=== PATIENT | female | born 1940 | race Caucasian/White ===

== ENCOUNTER 2019-12-29 05:56 | Day surgery (SDC) | payer MEDICARE, SELFPAY ==
[2019-12-29] VITALS (7 sets, daily range): BP systolic 126–151; BP diastolic 57–66; PULSE 44–53; RESP 16; TEMP 36.3–36.7; O2SAT 93–100; BMI 36.6
[2019-12-29] MEDS: Lactated Ringers 1,000 ML 100 ML IV (06:33)
--- NOTE | 2019-12-29 07:30 | BLA_PTH ---
PATIENT: Mabel KINNEY LOC: [facility] [place] U#:[id number] AGE/SX: 79/F ROOM: RE12/29/[address]: Dr. Elinor Soares MD : 1940 BED: DIS: 12/29/2019 SPEC #: [id number] RECD: 12/29/19 11:18 STATUS: POLLO REBal #: [id number] NELSY: 12/29/19 07:[address]: Elinor Soares DEPT: SURGICAL PATHOLOGY RECD BY: Lino Jones ENTERED: 12/29/19 13:04 SP TYPE: BLADDER BX OTHR DR: Dr. Taj Allan MD Tissues: A - Urinary bladder, NOS B - Urinary bladder, NOS Procedures: Surgery Specimen Level IV HEADER OPERATION: Cysto, urethral dilatation, bladder biopsy PRE-OP DIAGNOSIS: Stricture of urethra TISSUE SUBMITTED: A - Bladder biopsy, left lateral, B - Trigone consistent with leukoplakia MICROSCOPIC DIAGNOSIS A. Left lateral urinary bladder, biopsy: Chronic follicular cystitis. B. Urinary bladder trigone, biopsy: Chronic follicular cystitis. Focal acute cystitis. AM:debo 12/30/19 MICROSCOPIC DESCRIPTION Slides are reviewed. GROSS DESCRIPTION A - Received in fixative is one container labeled with the patient's name and designated bladder biopsy left lateral. The specimen consists of three irregular fragments of light hooks soft tissue that in aggregate measure 0.4 x 0.4 x 0.1 cm. The specimen is totally submitted in one cassette. B - Received in fixative is one container labeled with the patient's name and designated trigone consistent with leukoplakia. The specimen consists of two irregular fragments of hooks soft tissue that in aggregate measure 0.6 x 0.2 x 0.1 cm. The specimen is totally submitted in one cassette. / SJ:debo 12/29/19 TC:2 CPT: 11964 x2
--- NOTE | 2019-12-29 07:30 | PCM.DC.URO ---
Discharge Diet: No Restrictions Discharge Activity: May not drive while taking narcotic pain medications. May resume sexual activity in: 1 week Call your doctor if you observe: Fever of 101 or Higher, Inability to urinate, Inability to have a bowel movement, Calf discomfort, Uncontrolled pain Allergies/Adverse Reactions: Allergies aspirin Allergy (Verified 12/29/19 06:18) Swelling Medications to take at Discharge Amitriptyline HCl [Elavil] 25 mg PO QHS PRN 12/22/19 Estradiol [Estrace Vaginal Cream] 1 dose VAGINAL SUTH 12/22/19 Famotidine [Pepcid] 40 mg PO QHS 12/22/19 Fexofenadine HCl [Geraldine Allergy] 180 mg PO DAILY 12/22/19 Hydrochlorothiazide [Hctz] 25 mg PO DAILY 12/22/19 L. Acidophilus/Pectin, [place] [Acidophilus Capsule] 1 ea PO DAILY 12/22/19 Losartan Potassium [Cozaar] 25 mg PO DAILY 12/22/19 Tennyson-3 Fatty Acids [Tennyson-3] 200 mg PO BID 12/22/19 Rizatriptan Benzoate [Rizatriptan] 10 mg PO PRN PRN 12/22/19 Simvastatin [Zocor] 20 mg PO QHS 12/22/19 Ubidecarenone [Co Q-10] 10 mg PO DAILY 12/22/19 Primary Care Physician: Taj Allan MD [Primary Care Provider] - Test Results: Test results from this visit will be discussed in further detail at your follow-up appointment, if applicable. Please Follow Up With: Elinor Soares MD When: call for appt to be seen in 1-2 weeks Proposed Discharge Date: 12/29/19
--- NOTE | 2019-12-29 07:32 | OP.PCM_ITS ---
Problem List (1) Stricture of female urethra Status: Acute Report of Operation Date of Procedure: 12/29/19 Pre-Operative Diagnosis: urethral stricture, urgency and frequency of urination Post-Operative Diagnosis: same Surgery/Procedure Performed:: urethral dilation, cystoscopy Type of Anesthesia:: General Special Medications: Ancef Description of Procedure: The patient is a 79-year-old female who reported to the office with issues regarding urgency, frequency and nocturia. On evaluation she was found to have urethral stricture and I was unable to pass the scope in the office. Her sister has a history of bladder cancer. Risks, benefits and alternatives were discussed and informed consent was obtained to proceed with cystoscopy, urethral dilation and possible bladder biopsy under anesthesia. The patient was taken to the operating room and placed on the operating room table. Anesthesia monitored the head, neck, airway, IV access and vital signs throughout the case. Once anesthesia was appropriately administered, the patient was placed into dorsal lithotomy position and was prepped and draped in usual sterile fashion. The urethra was dilated from 12 Beninese to 30 Beninese using sounds. The urethra was then intubated with a 70 degree lens 21 Beninese cystoscope. The bladder mucosa in its entirety was observed. There is an area approximately 5 mm in size consistent with leukoplakia on the area of the trigone, closer to the left side, approximately 1.5 cm medial to the left ureteral orifice. There is a second area slightly raised, and hemorrhagic in appearance also approximately 5 mm in size located on the left lateral bladder wall lateral to the left ureteral orifice. Both of these areas were removed with bladder biopsy forceps and were cauterized for hemostatic control and tissue treatment. There were no other concerning areas identified. 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 The bladder was then emptied and the case was terminated. She was awakened and taken to recovery in good condition. There were no complications during this procedure. Grafts/Implants Used: None - Complications None - Admit VTE Documentation VTE Present on Admission: Yes VTE Mechan Device Prophylaxis: SCD's VTE Pharm Prophylaxis ordered?: No Reason prophylaxis not ordered:: Treatment Not Indicated
[2019-12-29] MEDS: Cefazolin 2 GM in 0.9% Normal Saline 100 ML IV (07:38)
== END 2019-12-29 09:36 | disposition home or self-care (01) ==
LOC: SDC 05:58 → AC 06:00
PROVIDERS: PCP Family Medicine; Referring Provider Urology; Visit Provider Urology
PROC: 0T7D8ZZ Dilation of Urethra, Via Natural or Artificial Opening Endoscopic (ICD-10-PCS; CPT 52281; principal; 2019-12-29 07:20)
DX: N30.80 Other cystitis without hematuria (principal); N30.00 Acute cystitis without hematuria; N30.30 Trigonitis without hematuria; N35.92 Unspecified urethral stricture, female; N39.41 Urge incontinence; R35.0 Frequency of micturition; R35.1 Nocturia; N95.2 Postmenopausal atrophic vaginitis; E78.00 Pure hypercholesterolemia, unspecified; R73.03 Prediabetes; K21.9 Gastro-esophageal reflux disease without esophagitis; Z79.899 Other long term (current) drug therapy; Z87.891 Personal history of nicotine dependence
CPT/HCPCS: 52224; 88305; J7120; J2405

== ENCOUNTER 2021-01-04 12:57 | Outpatient (RCR) | payer MEDICARE, SELFPAY ==
[2019-12-29 06:21] VITALS: BMI 36.6
== END 2021-01-04 23:59 ==
LOC: IMMUN 12:57
PROVIDERS: PCP Family Medicine; Visit Provider Family Medicine
DX: Z23 Encounter for immunization (principal)
CPT/HCPCS: 0011A; 91301

== ENCOUNTER → 2022-03-29 | Outpatient (CLI) | payer MEDICARE, SELFPAY ==
--- NOTE | 2022-03-29 13:35 | CT_ITS ---
STUDY: CT SCAN LOWER EXTREMITY LEFT REASON FOR EXAM: Female, 81 years old. PRE OP.[facility] protocol. RADIATION DOSAGE (If Supplied By Facility): CTDIvol = ( 28.14 ) mGy, DLP = ( 1102.17 ) mGycm. Individualized dose optimization techniques were used for this CT.? TECHNIQUE: Multiple axial tomographic images of the left hip joint, left knee and left ankle joints were obtained. Coronal and sagittal reconstruction was obtained as well. COMPARISON: None. FINDINGS: Imaging of the left hip joint was performed. No significant abnormality is seen. No significant joint space narrowing is present. Imaging of the left knee joint was performed. There is a moderate degree of joint space narrowing involving the medial compartment of the knee joint. No significant joint effusion is seen. Minimal degenerative spur formation is seen along the lateral femoral condyle and lateral tibial plateau. Imaging of the ankle joint was obtained. Small calcaneal cysts are seen. CT/Extremity Lower without Contra IMPRESSION: Moderate degree of joint space narrowing involving the medial compartment of the knee joint. Electronically Signed: Puneet Vale MD at 14:21 EDT ,
== END | disposition home or self-care (01) ==
LOC: CT 13:33
PROVIDERS: PCP Family Medicine; Referring Provider Specialist; Visit Provider Specialist
DX: Z01.818 Encounter for other preprocedural examination (principal)
CPT/HCPCS: 73700

== ENCOUNTER 2022-04-11 13:39 | Observation (INO) | payer MEDICARE, SELFPAY ==
--- NOTE | 2022-03-27 15:10 | HP.PCM_ITS ---
History and Physical History and Physical [facility] Patient Name: Shruthi Vasquez : 1940 From: WILBER DIXON PA-C DATE OF SURGERY: 04/11/2022 SCHEDULED PROCEDURE: left total knee arthroplasty HISTORY OF PRESENT ILLNESS: Preoperative history and physical exam was performed on March 26, 2022. This is a 81-year-old female who is been having ongoing pain for nearly 10 years. Patient has been having pain with going up and down stairs, walking, sitting and standing. Pain is been intermittent, dull, aching, sharp, stabbing, sore. She has difficulty with activities of daily living including housework, shopping and leisure activities. She has tripped/stumbled due to the pain. She gets popping and locking sensation in the knee. Pain is located over the posterior aspect of the knee and anterior knee. Pain does occasionally wake her at nighttime. Patient does have start up pain. She has tried conservative measures including home exercises and healthcare economics manager without relief in symptoms. She has had previous corticosteroid injection with minimal relief. She has tried oral medications including Tylenol. She denies previous surgery with her left knee. She has been utilizing a cane for ambulatory assistance. She does continue to have difficulty with getting dressed as well as putting on her socks and shoes. After failing conservative measures and discussing treatment options was Dr. Tristan Allan, the patient does wish to proceed with a left total knee arthroplasty. We are obtaining surgical clearance from the primary care [facility] Dr. Taj Allan. Patient has history of gastroesophageal reflux disease, fibromyalgia, hypertension. She currently denies any chest pain, shortness of breath, fevers chills or recent infections. REVIEW OF SYSTEMS: Review Of Systems: Constitutional: Reports weight change, but denies change in appetite and fever. Cardiovasular: Denies chest pain, heart murmur and irregular heartbeat. Respiratory: Denies cough, pneumonia, shortness of breath, tuberculosis and wheezing. Gastrointestinal: Denies constipation, diarrhea, heartburn, nausea, rectal itching, bloody stools and vomiting. Genitourinary: Denies incontinence. Musculoskeletal: Reports gait disturbance, trouble walking and weakness, but denies leg swelling and pain. Skin: Reports history of shingles, but denies Raynaud's and tattoo. Neurological: Reports tremor but denies ambulatory dysfunction, dizziness and numbness/tingling. Psychiatric: Reports stress, but denies anxiety and insomnia. Hematologic/Lymphatic: Denies anemia, bleeding/bruising tendency and past transfusion. Reviewed, no changes. PAST MEDICAL HISTORY: Advance Care Plan: No Advance Directives Effective Date: 01/29/2022 Past Medical History: Medical Problems: Acid Reflux, Arthritis, Fibromyalgia, High Blood Pressure, Hypercholesterolemia, Osteoporosis, Covid-19 Vaccinated Accidents: None Surgical Hx: Appendectomy - (1966) Cataracts - (2016) DR PIZARRO Gallbladder - (1996) Hysterectomy - (1966) Tonsillectomy - (1958) Knee Arthroscopy RT - (2010) SADAF Carpal Tunnel Release LT - (1994) Anesthesia Complications: None Assistive Devices: Glasses, Dentures Reviewed, no changes. SOCIAL HISTORY: Social History: Marital: .Occupation: Retired.Work Status: Retired.Hand Dominance: Right- handed. Personal Habits: Cigarette Use: Former.Smokeless Tobacco: Never Used Smokeless Tobacco.E-Cigarette Use: Never used.Alcohol: Has consumed alcohol in the past.Drug Use: Denies Use.Enjoy Exercising: Exercises 1-3 X/Week. Reviewed, no changes. VITALS: Ht: 60.5 Wt: 176lb Wt k.834 BMI: 33.8 BP: 130/86 Pulse: 53 T: 97.3 T: 36.3C Pain Level: 3 O2SatR: 96 ALLERGIES: Aspirin - Anaphalaxis NSAIDS MEDICATIONS: Simvastatin 20 mg 1 by mouth every day, Famotidine 40 mg 1 by mouth every day, Probiotic Acidophilus daily, Spironolactone 25 mg 1 by mouth every day, Losartan Potassium 50 mg 1 by mouth every day, Tylenol Extra Strength 500 mg 2 by mouth every 8 hours PRE-OP EXAM: General appearance:NORMAL Other: Eyes: Conjunctivae and lids: NORMAL Pupils: ERR Ears, Nose, Mouth, and Throat: NORMAL Other: Inspection of lips, teeth and gums: NORMAL Other: Neck: Examination of neck: no masses noted. Respiratory: Assessment of respiratory effort: NORMAL Other: Auscultation of lungs: clear to auscultation no wheezes, rhonchi or rales. Cardiovascular: Auscultation of heart: regular rate and rhythm, no murmurs, gallops or rubs. PHYSICAL EXAMINATION: Patient does walk with a mild antalgic gait. She has tenderness to palpation along the medial joint line. Patient does have large effusion. Range of motion: Lacks 5 full extension to 120 flexion. Stable to varus/valgus stress test, stable to anterior/posterior drawer exam. Sensation intact to light touch. IMAGING STUDIES: Previous x-rays of the left knee reveal valgus alignment with lateral joint space narrowing, subchondral sclerosis, osteophyte formation consistent with severe stage IV osteoarthritis with bony erosions of the lateral compartment. IMPRESSION: 1. 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 Gastroesophageal reflux disease 3. Hypertension 4. Fibromyalgia 5. Hypercholesterolemia 6. Osteoporosis PLAN: Dr. Tristan Allan did discuss and review with the patient all treatment options including surgical versus nonsurgical options. Patient does wish to proceed with the above-stated procedure. Potential risks, benefits, and complications of the procedure were discussed in detail including but not limited to , infection, nerve and blood vessel damage, persistent pain, numbness, tingling, paresthesias, blood clot, pulmonary embolism, and requirement for possible further surgery. The patient expressed full understanding and has no further questions for the doctor. Patient does agree to proceed with the above-stated procedure and has signed the surgery consent form. We discussed the current risks associated with COVID 19. This does include the risk of exposure while in the hospital. Patient was reassured local hospitals have low infection rates and are taking all necessary precautions to avoid exposure to patients. In addition, we discussed strategies that can be used to help limit exposure including those that limit the patient's time in the hospital. Also using strategies to limit the patient's need for continued inpatient services after being discharged from the hospital. Patient was notified that we will need to comply with any screening or testing the hospital wishes to perform or that surgery may be delayed for any positive results. This dictation was created using voice recognition software. Phonetic and/or grammatical errors may exist. ___ I have re-examined the patient. There are no clinical changes since date of exam. ___ See progress notes for changes. ___ Dictated on admission Date: Time: Signature:
--- NOTE | 2022-03-30 13:47 | EKG12_ITS ---
Test Reason : PREOP Blood Pressure : / mmHG Vent. Rate : 068 BPM Atrial Rate : 068 BPM P-R Int : 166 ms QRS Dur : 090 ms QT Int : 388 ms P-R-T Axes : 049 -07 039 degrees QTc Int : 412 ms Normal sinus rhythm Normal ECG Confirmed by VARGAS ZAFAR, MIRIAM ([id number]), editor dictionary PONCHO GRANADOS ([id number]) on 04/02/2022 9:59:52 AM Referred By: Tristan Allan Confirmed By:SHEELA KAYE MD
[2022-03-30 14:17] LABS: Absolute Neutrophil Count 3.2 X10^3/uL (2.0-7.7); Basophil# 0.02 X10^3/uL; Basophil% 0.3 % (0-1); Eosinophil# 0.17 X10^3/uL; Hematocrit 38.9 % (37-47); Hemoglobin 13.2 g/dL (12.0-15.0); Lymphocyte % 31.5 % (19-41); Mean Corp Hgb Conc 33.9 g/dL (32-36); Mean Corpuscular Hgb 29.3 pg (27.0-32.0); Mean Corpuscular Volume 86.4 fL (81-99); Mean Platelet Vol. 10.1 fl (6.2-12.0); Monocyte# 0.48 X10^3/uL; Monocyte% 8.4 % (0-10); NRBC Flagged by Analyzer 0 % (0-5); Neutrophil # 3.24 X10^3/uL (2.7-7.7); Neutrophil % 56.6 % (47-70); Platelet Count 233 K/mm3 (150-450); RBC Distribution Width CV 12.9 % (11.6-14.6); RBC Distribution Width SD 40.8 fl (35.1-43.9); White Blood Count 5.7 K/mm3 (4.4-11.0)
[2022-03-30 14:42] LABS: Magnesium 2.1 mg/dL (1.6-2.6)
[2022-03-30 14:48] LABS: Albumin, Serum 3.8 g/dL (3.2-5.0); Anion Gap 6 (5-15); BUN 11 mg/dL (7-18); BUN/Creat Ratio 11.9 RATIO (10-20); Calcium,Total 9.1 mg/dL (8.5-10.1); Chloride 107 mmol/L (98-107); Creatinine, Serum 0.92 mg/dL (0.55-1.02); EST Glomerular Filtration Rate 62 mL/min (>60); Est Glom Filt Rate - Afr Amer 75 mL/min (>60); Glucose 108 mg/dL (74-106); Potassium 3.7 mmol/L (3.5-5.1); Sodium Level 140 mmol/L (136-145)
[2022-04-11] VITALS (11 sets, daily range): BP systolic 107–183; BP diastolic 40–80; PULSE 64–82; RESP 11–18; TEMP 35.9–36.7; O2SAT 96–100; BMI 32.9
[2022-04-11] MEDS: Magnesium Sulfate 2 GM IV IV (07:09)
[2022-04-11] MEDS: Lactated Ringers 1,000 ML 999 ML IV ×2 (07:09→10:31)
[2022-04-11 07:10] LABS: Bedside Glucose 92 mg/dL (74-106)
[2022-04-11] MEDS: Gabapentin 600 MG Tablet PO (07:10)
[2022-04-11] MEDS: Acetaminophen 500 MG Tablet 1000 MG PO ×3 (07:10→21:03)
--- NOTE | 2022-04-11 07:12 | OP.PCM_ITS ---
Report of Operation Date of Procedure: 04/11/22 Pre-Operative Diagnosis: Left knee primary osteoarthritis Post-Operative Diagnosis: Left knee primary osteoarthritis Surgery/Procedure Performed:: Left knee minimally invasive robotic assisted total knee replacement Description of Surgical Findings:: Stable knee with good patella tracking Surgeon: Tristan Allan parking cashier: Jose Luis Graff Type of Anesthesia: Spinal Anesthesiologist: Jf Coates Special Medications: 2 g Ancef, 1 g TXA at incision, 1 g TXA closure, 10 mg Decadron, joint cocktail (5 mg Duramorph, 30 mL of 0.5% Ropivicaine, 1000 units of epinephrine, 30 mg of Toradol) Specimen's removed: Bony cuts Estimated Blood Loss (mL): 50 Fluids Replaced: 1100 Milliliters crystalloid Description of Procedure: Implants used: 1. Benny size 3 triathlon cruciate retaining distal femoral press-fit component 2. Benny size 3 press-fit tritanium tibial baseplate 3. Benny X3 9 mm CS polyethylene 4. Benny X3 29 mm asymmetric patella Brief history operative indications: 82-year-old f with history of left knee osteoarthritis with radiographic findings with loss of joint space, osteophyte formation and subchondral sclerosis. Failed conservative measures as mentioned in the H&P. Discussion of total knee arthroplasty as well as risk and benefits were discussed the patient including but not limited to blood loss, DVTs, PEs, neurovascular damage, general risk of anesthesia including loss of life, and stiffness or instability were discussed with patient. Patient demonstrated understanding and was able to sign informed consent. Procedure: On the date of procedure patient's left lower extremity was marked in the preoperative area. The patient was then taken back to the operating room where the patient was placed on the table in the supine position. All bony prominences were identified a well-padded. Anesthesia assumed control of the C-spine and airway and remained controlled throughout the remainder of the procedure. A tourniquet was placed on the left upper thigh and the leg was prepped in a sterile fashion. The surgeon then scrubbed at this time .Upon reentering the room left lower extremity was draped in a standard orthopedic fashion. A timeout was then called and everyone agreed upon the side, the site, the procedure to be performed, patient's identity and antibiotics given. Esmarch bandage was used to exsanguinate the extremity and the tourniquet was placed up to 250 mmHg with the knee in flexion. A midline skin incision was made and sharp dissection was taken down through skin subcutaneous tissue and fat. The standard medial parapatellar incision was made and the patella was subluxed laterally. An Appropriate deep MCL release was done and the fat pad was resected. Our attention was then directed to the patella. The patella was everted and a flat resection was made. The knee was then flexed up in 2 femoral pins were placed inside the incision and 2 tibial pins were placed outside the incision in the medial tibia bicortically. Once this was completed the 2 checkpoints in the femur and tibia were placed. Knee was then flexed up and the bony landmarks were registered. Once this was completed knee was taken through range of motion and manually stressed allowing us to a plan for an appropriate tibial cut. The robotic arm was brought into the field sterilely and checkpoint and saw were registered. Based on the patient's deformity the tibial cut was made in 1 degree of varus. At this time the tensioner was then placed in the joint and ligament tension was checked at 90 degrees and full extension. Based on the patient's ligamentous tension appropriate adjustments were made to the operative plan and ligament releases were done. Once we were happy with our operative plan with balanced flexion and extension gaps our attention was directed to the femur. The robot was brought into the field sterilely and registered. Posterior condylar cuts, anterior chamfer cuts and anterior cuts were appropriately made for a size 3 femur. When these were completed the saws were switched out in the distal femoral and posterior chamfer cuts were made. Protecting the soft tissue throughout this time. A size 3 tibial base plate was selected. the knee was flexed to 90 degrees and the soft tissues and posterior osteophytes were removed from the joint. 40 cc of the periarticular injection was injected into the posterior medial corner of the joint. The appropriate trials were then placed on the femur and tibia. A trial polyethylene was trialed to ensure proper balancing and stability of the knee. The appropriate tibial internal rotation was then marked with a bovie. Our attention was then directed to the patella. The lug holes were drilled and the patella trial was placed. Patellar tracking was checked and deemed appropriate. Once we were happy lug holes were drilled for the femur and trial components were removed. the tibia was subluxed and pinned into place and the keel was punched and drilled appropriately. Final components were verified and opened, and cement was mixed in a vacuum. [place] Simplex cement was used. The wound was copiously irrigated with normal saline. When the cement was ready the components were impacted into place starting with the tibia, femur the femur did not have an appropriate fit therefore we cemented the femur and finally cementing the patella. The trial poly component was placed and the knee was placed in full extension. All excess cement was removed in the process. Once the cement had cured the tracking, alignment and balance were verified and a size 9 mm CS polyethylene component was placed. Once the final components were placed a 3-minute dilute Betadine lavage was performed followed by an Irrisept lavage was performed and the wound was copiously irrigated with normal saline solution and the periarticular injection was given. The wound was closed in a layer diaz fashion using #1 vicryl interrupted sutures for the arthrotomy, 2-0 interrupted Vicryl suture for the subcuticular layer and amanda for final skin closure. A sterile compressive dressing was then placed. The patient was then awakened from anesthesia, transferred to the [facility] and transferred to the PACU for recovery. Post op plan DVT ppx: Xarelto 10 mg daily for 2 weeks due to aspirin anaphylactic allergy, thigh high compression stockings Follow up: in office in 2 weeks for wound check PT: to start POD #0 at hospital, outpatient PT should be arranged. My physician corporate administrative assistant was a vital part of this case. He was important in appropriate retraction during the case, and protection of soft tissues during bony cuts. His intimate knowledge of the case and my steps aided in safe and expedient completion of the procedure as well as appropriate position of the leg during the case. He was also vital in assisting with closure under my direct supervision. Due to the complexity of this case robotic arm was used to assist in the surgery to improve accuracy and clinical outcomes. Complications No intraoperative complications Admit VTE Documentation VTE Present on Admission: No VTE Mechan Device Prophylaxis: SCD's and Thigh High MARA Hose VTE Pharm Prophylaxis ordered?: Yes
[2022-04-11] MEDS: Lactated Ringers 1,000 ML 75 ML IV (08:05)
[2022-04-11] MEDS: Cefazolin 2 GM in 0.9% Normal Saline 100 ML IV (08:32)
[2022-04-11] MEDS: TXA 1000mg in NS100 100ml (IVPB at Incision) 660 MG IV (08:45)
--- NOTE | 2022-04-11 08:45 | KNEE_PTH ---
PATIENT: Mabel KINNEY LOC: [facility] U#:[id number] AGE/SX: 82/F ROOM: CA312 RE04/11/[address]: Dr. Tristan Allan MD : 1940 BED: 1 DIS: 04/12/2022 SPEC #: [id number] RECD: 04/11/22 11:04 STATUS: POLLO CHRISTIANSEN #: [id number] NELSY: 04/11/22 08:[address]: Tristan Allan DEPT: SURGICAL PATHOLOGY RECD BY: Elaine Cheng ENTERED: 04/11/22 11:24 SP TYPE: TOTAL KNEE OTHR DR: Dr. Taj Allan MD Tissues: Knee, NOS Procedures: Decalcification bone/plaque Surgery Specimen Level IV HEADER OPERATION: ERAS, total knee replacement robotic arm assist PRE-OP DIAGNOSIS: Left knee primary osteoarthritis TISSUE SUBMITTED: Femoral and tibial bone MICROSCOPIC DIAGNOSIS Femoral and tibial bone, total knee replacement/resection: Pieces of bone with degenerative osteoarthritic changes. Fibroadipose tissue, fibroconnective tissue and reactive synovial tissue. SJ:debo 04/16/2022 MICROSCOPIC DESCRIPTION Slides are reviewed. GROSS DESCRIPTION Received is one container designated bone left knee. The specimen consists of multiple fragments of hooks-yellow bone measuring in aggregate 16 x 8 x 1.5 cm. Also in the specimen container are multiple fragments of yellow-white soft tissue measuring in aggregate 2 x 1 x 0.6 cm. A number of bony fragments contain articular surfaces consistent with tibial plateau and femoral condyle and displaying prominent osteophyte formation, eburnation, and bone erosion. Union Contract Representative sections are submitted in two cassettes as follows: 1 - soft tissue, 2 - bone after decalcification. / AM:debo 04/11/2022 :5 [facility]: [id number]
[2022-04-11] MEDS: dexAMETHasone 10 MG/ML Vial IV (08:59)
[2022-04-11] MEDS: Joint Pain Solution (NO KETOROLAC) IV (09:52)
[2022-04-11] MEDS: TXA 1000mg in NS100 100ml (IVPB at Closure) 660 MG IV (09:56)
--- NOTE | 2022-04-11 10:55 | RAD_ITS ---
STUDY: X-RAY - LEFT KNEE REASON FOR EXAM: Female, 82 years old. Total knee arthroplasty. Follow-up. TECHNIQUE: 3 view(s) of the knee. COMPARISON: CT of the lower extremity dated 03/29/2022. FINDINGS: There is a 3 component total knee arthroplasty in anatomic position. There are expected post-operative findings. There are no complications. No other significant abnormality is identified. RAD/Knee 1 or 2 Views IMPRESSION: Total knee arthroplasty in anatomic alignment without complications. Electronically Signed: Bandar Mandel MD at 11:25 EDT ,
[2022-04-11] MEDS: Lactated Ringers 1,000 ML 125 ML IV (11:32)
--- NOTE | 2022-04-11 15:11 | PN.HOSP_ITS ---
Documented by User: PENELOPE aCal 04/11/22 15:18 Subjective Subjective Patient seen and examined. Patient lying in bed no distress noted. Patient reports that she has been unable to pee since surgery and has been back in her room for approximately 6 hours. Patient consulted for medical management of hypertension, GERD, hyperlipidemia. Patient underwent left knee replacement today with Dr. Allan Objective Data Objective Data Vital Signs: Vital Signs Temp Pulse Resp BP Pulse Ox 98.0 F 82 16 183/80 H 97 04/11/22 13:46 04/11/22 13:46 04/11/22 13:46 04/11/22 13:46 04/11/22 13:46 Oxygen Flow Rate (L/min) 4 Oxygen Delivery Method Room Air Weight: 174 lb 2.643 oz Body Mass Index (BMI) 32.9 Intake & Output: Intake and Output for Last 24 Hours 04/09/22 04/10/22 04/11/22 23:59 23:59 23:59 Intake Total 2616.5 / 2616.5 Balance 2616.5 / 2616.5 Lab / Micro Data Result Diagrams: 03/30/22 13:54 03/30/22 13:54 Labs: Laboratory Results - last 24 hr 04/11/22 06:48: POC Glucose 92 Micro: Microbiology 03/30/22 13:54 Interface Orders Nasal Screen MRSA/MSSA - Final Radiography Diagnostic Testing: Radiology Impression Knee X-Ray 04/11/22 10:55 IMPRESSION: Total knee arthroplasty in anatomic alignment without complications. Electronically Signed: Bandar Mandel MD at 11:25 EDT , Physical Exam Const alert, oriented x3 and no apparent distress HEENT head/scalp atraumatic and moist oral mucous membranes Head and Scalp: normocephalic Eyes conjunctivae normal and no scleral icterus Neck supple General: trachea midline Resp normal respiratory effort, normal air movement and clear to auscultation bilaterally Effort and Inspection: able to speak in complete sentences and symmetric chest movement Cardio regular rate, regular rhythm, S1 normal heart sound and S2 normal heart sound GI normal to inspection, nondistended, normoactive bowel sounds, soft to palpation and non-tender Extremity normal capillary refill and no clubbing, cyanosis or edema Peripheral Pulses: Yes pulses 2+ throughout Left Lower Extremity: knee joint neurovascular exam (Intact) Skin Skin Narrative: Postsurgical dressing dry and intact to left knee, left knee incision not visualized Neuro oriented x3, no focal motor deficits and no sensory deficits noted Sensorium / Orientation: awake and alert Speech: speech normal Psych affect normal Assessment & Plan Assessment/Plan (1) Status post total left knee replacement: PLAN: 1. Postsurgical urinary retention -Patient has been unable to urinate following surgery this morning -Straight cath x1 -Intake and output 2. Hypertension -Continue spironolactone, losartan -Vital signs per protocol 3. Hyperlipidemia -Continue simvastatin 4. GERD -Continue famotidine DVT prophylaxis-SCDs This patient was seen by Della Nowak NP-C under the supervision of Dr. Guzmán. 12 minutes spent in clinical coordination of patient's plan of care. Documented by User: Dr. Nathan Guzmán DO 04/11/22 20:12 Objective Data Lab / Micro Data Result Diagrams: 03/30/22 13:54 03/30/22 13:54 Charges/Coding Addendum Addendum: Patient was seen and examined today independently of Silvana Nowak, she underwent a left knee minimally invasive robotic assisted total knee replacement today, her chronic medical problems include essential hypertension, hyperlipidemia, GERD, and osteoarthritis. At the time my examination, patient does not complain of any severe surgical site pain, she denies any chills, chest pain, or fever. On examination she appeared in good health and spirits, she does not appear to be in any distress. Vital signs as documented. Skin warm and dry and without o vert rashes. Neck without JVD, thyroid appears normal, trachea is midline, neck is supple. Lungs clear, normal air movement was noted. Heart exam notable for regular rhythm, normal sounds and absence of murmurs, rubs or gallops. Abdomen unremarkable and without evidence of organomegaly, masses, or abdominal aortic enlargement, bowel sounds are present in all 4 quadrants, no abdominal tenderness was noted. Extremities-patient's left leg was wrapped with surgical dressing and this was not examined, no cyanosis was noted, no clubbing was noted. Neuro: Cranial nerves II through XII are grossly intact, no focal motor deficits were noted, sensation to light touch and pinprick is intact, motor exam 5/5 throughout. Psych: Patient is alert and oriented x3, she does not appear anxious or depressed, she does not appear agitated. Impression #1 essential hypertension-patient will remain on her present medication, blood pressure will be monitored #2 hyperlipidemia-patient will remain on her current medication-simvastatin #3 GERD-patient is on famotidine #4 osteoarthritis-postop day 0 left knee minimally invasive robotic assisted total knee replacement-PT and OT are seeing patient, orthopedic surgery is participating in her care. Patient states she plans to go home at the time of discharge from the hospital rather than go to rehab facility. I have reviewed Silvana Nowak's progress note including her medical assessment and plan of care and with the above additions endorse it. Total clinical time spent by myself addressing the patient's medical issues, reviewing the data, and collaborating with patient's care team: 20 minutes Visit Charges Inpatient E&M: 73560 Subs Hosp L2
[2022-04-11] MEDS: Ensure Surgery 237 ML LIQUID PO (17:33)
[2022-04-11] MEDS: Atorvastatin Calcium 10 MG Tablet PO (21:04)
[2022-04-11] MEDS: Senna/Docusate Sodium 1 Tablet 2 TABLET PO (21:04)
[2022-04-12 02:15] VITALS: BP 152/56; PULSE 61; RESP 18; TEMP 36.8; O2SAT 96
[2022-04-12] MEDS: Rivaroxaban 10 MG Tablet PO (04:54)
[2022-04-12] MEDS: Acetaminophen 500 MG Tablet 1000 MG PO ×2 (04:54→14:08)
[2022-04-12 05:19] LABS: Hematocrit 37.1 % (37-47); Mean Corp Hgb Conc 32.3 g/dL (32-36); Mean Corpuscular Hgb 28.8 pg (27.0-32.0); Mean Platelet Vol. 11.1 fl (6.2-12.0); Platelet Count 201 K/mm3 (150-450); RBC Distribution Width SD 42.7 fl (35.1-43.9); Red Blood Count 4.17 M/mm3 (4.2-5.4)
[2022-04-12 05:50] LABS: Anion Gap 5 (5-15); BUN 11 mg/dL (7-18); BUN/Creat Ratio 16.3 RATIO (10-20); Calcium,Total 9.2 mg/dL (8.5-10.1); Chloride 109 mmol/L (98-107); Creatinine, Serum 0.68 mg/dL (0.55-1.02); EST Glomerular Filtration Rate 89 mL/min (>60); Est Glom Filt Rate - Afr Amer 108 mL/min (>60); Estimated Creatinine Clearance 33.86 ml/min; Glucose 120 mg/dL (74-106); Potassium 4.1 mmol/L (3.5-5.1); Sodium Level 141 mmol/L (136-145)
[2022-04-12 07:33] VITALS: BP 162/64; PULSE 62; RESP 16; TEMP 36.4; O2SAT 100
--- NOTE | 2022-04-12 08:23 | PN.HOSP_ITS ---
Subjective Subjective Patient is an 82-year-old lady who underwent left total knee arthroplasty on 04/11/[address] Allan and the hospitalist service was consulted to assist with management of patient medical comorbidities Objective Data Objective Data Vital Signs: Vital Signs Temp Pulse Resp BP Pulse Ox 97.6 F L 62 16 162/64 H 100 04/12/22 07:33 04/12/22 07:33 04/12/22 07:33 04/12/22 07:33 04/12/22 07:33 Oxygen Flow Rate (L/min) 4 Oxygen Delivery Method Room Air Weight: 79 kg Body Mass Index (BMI) 32.9 Intake & Output: Intake and Output for Last 24 Hours 04/10/22 04/11/22 04/12/22 23:59 23:59 23:59 Intake Total 3671.5 / 3921.5 605 / 605 Output Total 300 / 300 Balance 3671.5 / 3921.5 305 / 305 Lab / Micro Data Result Diagrams: 04/12/22 04:43 04/12/22 04:43 Labs: Laboratory Results - last 24 hr 04/12/22 04:43: WBC 12.0 H, RBC 4.17 L, Hgb 12.0, Hct 37.1, MCV 89.0, MCH 28.8, MCHC 32.3, RDW Std Deviation 42.7, RDW Coeff of Kasandra 13.0, Plt Count 201, MPV 11.1 04/12/22 04:43: Sodium 141, Potassium 4.1, Chloride 109 H, Carbon Dioxide 27.0, Anion Gap 5, BUN 11, Creatinine 0.68, Estim Creat Clear Calc 33.86, Est GFR (MDRD) Af Amer 108, Est GFR (MDRD) Non-Af 89, BUN/Creatinine Ratio 16.3, Glucose 120 H, Calcium 9.2 Micro: Microbiology 03/30/22 13:54 Interface Orders Nasal Screen MRSA/MSSA - Final Radiography Diagnostic Testing: Radiology Impression Knee X-Ray 04/11/22 10:55 IMPRESSION: Total knee arthroplasty in anatomic alignment without complications. Electronically Signed: Bandar Mandel MD at 11:25 EDT , Physical Exam Narrative GENERAL: cooperative HEENT: Atraumatic; EYES; Anicteric, Normal Conjunctiva NECK; supple, normal thyroid, RESPIRATORY: Diminished to auscultation CARDIOVASCULAR: Regular S1 S2, GI: soft, normoactive bowel sounds, : No Renal angle tenderness; EXTREMITIES: Left knee in surgical dressing MUSCULOSKELETAL: no muscle wasting NEURO: Awake; no lateralizing signs. SKIN: No Rash PSYCH; Flat affect Assessment & Plan Assessment/Plan (1) Status post total left knee replacement: PLAN: Patient is an 82-year-old lady who underwent left total knee arthro plasty on 04/11/[address] Allan and the hospitalist service was consulted to assist with management of patient medical comorbidities 1. Status post left total knee arthroplasty ? On 04/11/[address] Allan patient postoperative orders regarding pain management DVT prophylaxis as well as PT OT addressed by primary service 2. Postsurgical urinary retention ? Patient was managed with straight cathing 3. Hypertension - Blood pressure control not optimal, home medications continued with dose ad justment as needed 4. Dyslipidemia -Patient is on statin therapy, continued at home dose 5. GERD ? On PPI 6. DVT prophylaxis ? Patient is on rivaroxaban continued Charges/Coding Visit Charges Inpatient E&M: 96321 Subs Hosp L2
[2022-04-12] MEDS: Spironolactone 25 MG Tablet PO (10:23)
[2022-04-12] MEDS: Losartan Potassium 25 MG Tablet PO (10:24)
[2022-04-12] MEDS: Loratadine 10 MG Tablet PO (10:24)
[2022-04-12] MEDS: Famotidine 20 MG Tablet 40 MG PO (10:25)
[2022-04-12] MEDS: Senna/Docusate Sodium 1 Tablet 2 TABLET PO (10:25)
[2022-04-12] MEDS: oxyCODONE 5 MG Tablet PO (10:34)
--- NOTE | 2022-04-12 10:50 | CASEMGMT ---
PARAM LÓPEZ Face to Face with patient for initial transition planning/care coordination assessment. RN MARIBEL introduced self and role at [facility]. Patient sitting in chair, alert and oriented. Patient willing to participate in assessment and is able to answer all questions appropriately. Care providers, pharmacy, and demographics verified. Patient wishes to discharge home and is setup with [facility] for outpatient therapy. Patient states she has no further needs or concerns at this time. CM to follow for discharge planning needs that may arise. PCP: Jerrell Specialists: bobby Allan Pharmacy: [facility] retail at discharge Insurance: [employer] [facility] Prescription Benefit: yes Living Will/HPOA: none LNOK: Living Arrangements: Patient lives with in a single story home with 2 steps and railing to enter the home. Patient states she was independent at home prior to surgery Transportation: DME/HHC: Patient states she has walker, cane, shower chair, and raised toilet. Patient is setup with outpatient therapy at [facility] in [place] starting Saturday. No previous HHC or SNF Disposition Plan: Patient to discharge home with outpatient therapy, family support, and follow-up plans in place. Kelsi LOZANO, RN, CM
--- NOTE | 2022-04-12 12:44 | PCM.PN.ORT ---
Subjective Subjective The patient was sitting in bedside chair upon examination. Patient denies any chest pain, shortness of breath, dizziness, lightheadedness, nausea or vomiting, or calf pain. Pain is controlled on medications. No adverse overnight events. Patient overall is doing very well today. Her pain has been well controlled. Patient did have some postoperative urinary retention. She is urinating on her own today. Discussed case with the nurse and he states patient did slide down to the floor yesterday but did not fall or hit her head. Incident report was placed. She is doing well today and does wish to go home today. 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 Her pain has been controlled on medications. Objective Data Objective Data Vital Signs: Vital Signs Temp Pulse Resp BP Pulse Ox 97.6 F L 62 16 162/64 H 100 04/12/22 07:33 04/12/22 07:33 04/12/22 07:33 04/12/22 07:33 04/12/22 07:33 Oxygen Flow Rate (L/min) 4 Oxygen Delivery Method Room Air Weight: 79 kg Body Mass Index (BMI) 32.9 Intake & Output: Intake and Output for Last 24 Hours 04/10/22 04/11/22 04/12/22 23:59 23:59 23:59 Intake Total 3671.5 / 3921.5 605 / 605 Output Total 300 / 300 Balance 3671.5 / 3921.5 305 / 305 Lab / Micro Data Result Diagrams: 04/12/22 04:43 04/12/22 04:43 Labs: Laboratory Results - last 24 hr 04/12/22 04:43: WBC 12.0 H, RBC 4.17 L, Hgb 12.0, Hct 37.1, MCV 89.0, MCH 28.8, MCHC 32.3, RDW Std Deviation 42.7, RDW Coeff of Kasandra 13.0, Plt Count 201, MPV 11.1 04/12/22 04:43: Sodium 141, Potassium 4.1, Chloride 109 H, Carbon Dioxide 27.0, Anion Gap 5, BUN 11, Creatinine 0.68, Estim Creat Clear Calc 33.86, Est GFR (MDRD) Af Amer 108, Est GFR (MDRD) Non-Af 89, BUN/Creatinine Ratio 16.3, Glucose 120 H, Calcium 9.2 Micro: Microbiology 03/30/22 13:54 Interface Orders Nasal Screen MRSA/MSSA - Final Physical Exam Narrative Vital signs stable and afebrile. SCDs and MARA hose are in place bilaterally Patient is able to plantarflex and dorsiflex actively. Sensation is intact to light touch to saphenous, sural, superficial and deep peroneal, and tibial distribution. Main dressing and proximal pin site dressing is clean dry and intact. There is trace drainage over the distal pin site Negative Homans bilaterally, negative signs and symptoms of DVT. Const alert, oriented x3 and no apparent distress Assessment & Plan Assessment/Plan (1) Status post total left knee replacement: PLAN: 1. S/P left total knee arthroplasty POD #1 2. Continue Pain Medications: Tylenol and oxycodone 3. DVT Prophylaxis: Xarelto for 2 weeks postoperatively for DVT prophylaxis. Patient has anaphylactic aspirin allergy. No previous history of DVT or pulmonary embolisms 4. PT/OT: Weightbearing as tolerated with walker. Case was discussed with physical therapy and states patient is doing very well. 5. H & H: 12.0/37.1, asymptomatic. Postoperative anemia secondary to acute blood loss from surgery without any intra operative complications. 6. Reactive leukocytosis: Currently 12.0, afebrile. Patient did receive Decadron intraoperatively. 7. Continue postoperative medical management per medicine 8. Encouraged Incentive Spirometry 9. Disposition: Orthopedically stable and plan will be for discharge home today. Patient is doing well with physical therapy and her pain is well controlled. Patient would like her prescriptions E scribed to [facility] pharmacy. She will follow-up per postop instructions. She does have outpatient physical therapy established. She will contact her office upon discharge with any concerns or questions. I have reviewed the [place] Automated Rx Reporting System (OARRS) report for this patient for refill pattern and other prescriber involvement as part of the appropriate surveillance for the provision of acute and chronic controlled medications. The report was requested and reviewed on the date of this entry and was considered in the prescribing process. This dictation was created using voice recognition software. Phonetic and/or grammatical errors may exist.
--- NOTE | 2022-04-12 12:48 | PCM.DC ---
Discharge Instructions Diet Discharge Diet: No restrictions Activity Discharge Activity: May Not Drive (Until patient can walk 100 feet without the use of cane or walker and while taking narcotic pain medications.) May shower in (days): 1 (Please turn dressing away from water. Okay to get wet as long as dressing is intact to skin.) Ice area for (Minutes): 20 (Every 1-2 hours while awake[address] place barrier between the skin and ice pack.) Weight Bearing Status: Weight bearing as tolerated (With walker) Keep extremity elevated above heart level: Operative Extremity Dressing / Incision Call your doctor if your incision/area has: Continuous Slow Oozing, Sudden Increased Bleeding, Increased Pain/ Swelling, Increased Redness and Foul Smelling Discharge Call your doctor if you observe: Fever of 101 or Higher, Coldness, Increased Pain, Numbness or Tingling, Change in Color, Shortness of breath, Chest pain, Calf discomfort and Uncontrolled pain Remove Dressing in: 4 days (Okay to remove dressing on April 16, 2022) Additional Dressing/Incision Instructions:: Follow [facility] Post-op Instructions. Once postoperative dressing has been removed only use gentle soap and water over the incision. Do not use any ointments, Neosporin, salves, alcohol pads over the incision for 6 weeks postoperatively. Do not submerge underwater for 6 weeks postoperatively. Continue with MARA hose/elastic stockings for 2 weeks postoperatively. May remove at nighttime but needs to be placed back on the leg during the day. Do NOT use alcohol with narcotic pain medication. Do NOT make important decisions while taking narcotic medication. If you have problems with taking your medication (rash, itching, nausea, etc.) call the office at once. Follow Up Care Test Results: Test results from this visit will be discussed in further detail at your follow-up appointment, if applicable. Discharge Plan Admission Admit Date/Time: 04/11/22 13:39 Attending Provider: Tristan Allan Primary Care Provider: Taj Allan Consulting Providers: Nathan Guzmán ; Dmitriy Conti Discharge Orders/Prescriptions Prescriptions: New acetaminophen 500 mg Tablet 1,000 mg PO Q8 Qty: 100 RF: 0 oxycodone 5 mg Tablet 5 - 10 mg PO Q4H PRN PRN (Reason: Pain Score 4-10) 5 Days Qty: 60 RF: 0 sennosides-docusate sodium [Stool Softener-Stimulant Laxat] 8.6-50 mg Tablet 2 tab PO BID Qty: 0 RF: 0 Xarelto 10 mg Tablet 10 mg PO DAILY@0600 Qty: 13 RF: 0 Continued famotidine 40 MG tablet 40 mg PO DAILY RF: 0 coenzyme Q10 10 MG capsule 10 mg PO DAILY RF: 0 fexofenadine [Geraldine Allergy] 180 MG tablet 180 mg PO DAILY RF: 0 simvastatin 20 MG tablet 20 mg PO QHS RF: 0 losartan 25 MG tablet 25 mg PO DAILY RF: 0 acidophilus-pectin, citrus 1 EACH capsule 1 ea PO DAILY RF: 0 spironolactone 25 mg Tablet 25 mg PO DAILY RF: 0 loratadine [Claritin] 10 mg Tablet 10 mg PO DAILY PRN (Reason: Allergic Symptoms) RF: 0 Other Ambulatory Orders: 12 Lead EKG (Routine) Location: None Selected Ordered By: Dr. Tristan Allan Referrals / Follow Up: Physical,Therapy [Other] - 04/16/22 10:30 am Taj Allan MD [Primary Care Provider] - Jose Luis Graff PA-C [PHYSICIAN COMPUTER PROGRAMMER] - 04/27/22 2:45 pm Disposition Disposition (needs filled in before D/C Order can be placed): Home, Self Care
--- NOTE | 2022-04-12 14:06 | CASEMGMT ---
Addendum entered by Komal Patel 04/12/22 14:14: Pt is aware of cost of medication, she will go through the drive through to [facility] after dc. Original Note: TC to [facility], pt cost of xarelto is $20.36.
== END 2022-04-12 14:38 | disposition home or self-care (01) ==
LOC: SDC 13:41 → MS3 13:41
PROVIDERS: Anesthesiology; Admitting Provider Specialist; PCP Family Medicine; Referring Provider Specialist; Visit Provider Specialist
PROC: 0SRD0JZ Replacement of Left Knee Joint with Synthetic Substitute, Open Approach (ICD-10-PCS; CPT 27447; principal; 2022-04-11 08:15)
DX: M17.12 Unilateral primary osteoarthritis, left knee (principal); M21.062 Valgus deformity, not elsewhere classified, left knee; I10 Essential (primary) hypertension; R33.8 Other retention of urine; M79.7 Fibromyalgia; K21.9 Gastro-esophageal reflux disease without esophagitis; M81.0 Age-related osteoporosis without current pathological fracture; E78.5 Hyperlipidemia, unspecified; Z87.891 Personal history of nicotine dependence; R00.1 Bradycardia, unspecified
CPT/HCPCS: 27447; S2900; 01402; 64447; 36415; 73560; 80048; 82040; 82962; 83735; 85025; 85027; 87081; 88305; 88311; 93005; 96365; 96366; 97110; 97116; 97162; 97166; 97530; 97535; 99218; C1776; J7120; G0378; J2405

== ENCOUNTER 2022-04-16 09:37 | Emergency (ER) | payer MEDICARE, SELFPAY ==
[2022-04-16 09:38] VITALS: BP 132/65; PULSE 103; RESP 17; TEMP 36; O2SAT 94; BMI 34.7
--- NOTE | 2022-04-16 10:01 | EKG12_ITS ---
Test Reason : SOB Blood Pressure : / mmHG Vent. Rate : 074 BPM Atrial Rate : 074 BPM P-R Int : 162 ms QRS Dur : 088 ms QT Int : 382 ms P-R-T Axes : 047 -12 020 degrees QTc Int : 424 ms Normal sinus rhythm Normal ECG Confirmed by ALANA ZAFAR, JUAN ([id number]), health editor PONCHO GRANADOS ([id number]) on 04/17/2022 1:31:51 PM Referred By: BB Confirmed By:JUAN WARNER MD
--- NOTE | 2022-04-16 10:01 | VDLE_ITS ---
Reason For Study: Swelling Procedure LEFT This is a venous duplex using B-mode, color GSV is normal. flow and spectral Doppler. CFV is compressible, spontaneous, phasic, Exam performed in department. competent, and demonstrates normal A preliminary report was called and/or faxed augmentation. to ED. FV is compressible, spontaneous, phasic, competent and demonstrates normal augmentation. POP V is compressible, spontaneous, phasic, competent and demonstrates normal augmentation. T/P Trunk is compressible. PTV is compressible. LT PerV is compressible. VL/Venous Duplex US, Unilateral Interpretation Summary There is no evidence of left lower extremity deep vein thrombosis. Left great s aphenous vein appears patent and compressible segmentally. Ordering Physician: Marito Watson Referring Physician: Taj Allan Performed By: Kelsi Sharp RVT
--- NOTE | 2022-04-16 10:04 | EDS_ITS ---
HPI History of Present Illness Chief Complaint: Shortness of Breath Informant: patient Onset/Context/Timing Onset: Days (3-4) Context: gradual and onset Timing: Intermittent Quality: Positive for Orthopnea; Negative for Dyspnea on exertion Current Severity: Moderate Maximum Severity: Moderate Worsened by: Lying flat Relieved by: - (Sitting up and drinking fluids) Associated Symptoms Chest Pain: Positive for None Narrative Narrative: Patient had a robotic-assisted left total knee arthroplasty by Dr. Allan 5 days ago. For the last 3 to 4 days she has been having dyspnea when she lies down. Occasionally she has woken up snorting and whatnot, she feels like her mouth and throat are really dry and she feels like the shortness of breath is due to this but it is only when she lies down. It was really bad last night so she came in this morning for this. She denies any chest discomfort, dyspnea with exertion during the day, but now she feels hoarse. No coughing. No syncope or near syncope, no fevers. No right lower extremity swelling, her left leg is a little swollen, she has been taking her Xarelto but has not taken this morning's dose yet. No bleeding from anywhere. No history of lung or heart problems in the past. No history of blood clots. States that her left knee feels like it has been doing really well. [facility] Medical History Arthritis Bradycardia Cardiology follow-up encounter Gastric reflux High cholesterol History of echocardiogram History of stress test Hypertension Wears dentures Wears glasses Home Medications acidophilus-pectin, citrus 1 ea PO DAILY 12/22/19 [History Last Taken 04/06/22] coenzyme Q10 10 mg PO DAILY 12/22/19 [History Last Taken 04/06/22] famotidine 40 mg PO DAILY 12/22/19 [History Last Taken 04/11/22] fexofenadine [Geraldine Allergy] 180 mg PO DAILY 12/22/19 [History Last Taken Unknown] losartan 25 mg PO DAILY 12/22/19 [History Last Taken 04/11/22] simvastatin 20 mg PO QHS 12/22/19 [History Last Taken 04/10/22] spironolactone 25 mg PO DAILY 03/28/22 [History Last Taken 04/10/22] loratadine [Claritin] 10 mg PO DAILY PRN 04/11/22 [History Last Taken 04/11/22] acetaminophen 1,000 mg PO Q8 #100 tab 04/12/22 [Rx Last Taken Unknown] oxycodone 5 - 10 mg PO Q4H PRN PRN 5 Days #60 tab 04/12/22 [Rx Last Taken Unknown] rivaroxaban [Xarelto] 10 mg PO DAILY@0600 #13 tab 04/12/22 [Rx Last Taken Unknown] sennosides-docusate sodium [Stool Softener-Stimulant Laxat] 2 tab PO BID #0 tab 04/12/22 [Rx Last Taken Unknown] Allergy/AdvReac Type Severity Reaction Status Date / Time aspirin Allergy Anaphylaxis Verified 04/16/22 09:37 Surgical History (Updated 04/16/22 @ 11:[address] Marito Watson MD) Hx of foot surgery Social History Smoking Status: Former smoker ROS ROS ED Constitutional Constitutional ED: Denies chills or fever(s) Eyes Eyes: Denies change in vision or diplopia ENT ENT ED: Denies rhinorrhea or sore throat Cardiovascular Cardiovascular: Reports orthopnea; Denies chest pain or palpitations Respiratory/Chest Respiratory/Chest: Reports orthopnea; Denies cough or dyspnea on exertion Gastrointestinal Gastrointestinal: Denies abdominal pain, diarrhea, nausea or vomiting Genitourinary Genitourinary ED: Denies dysuria or hematuria Musculoskeletal Musculoskeletal: Reports other Details: Postoperative left knee pain, p ostoperative left lower extremity swelling ; Denies back pain or neck pain Integumentary Denies abscess or rash Neurologic Neurologic: Denies headache(s), paresthesias or weakness Psychiatric Psychiatric: Denies anxiety or suicidal thoughts EXAM Physical Exam Const Vital Signs: 04/16/22 09:38 04/16/22 10:21 Temperature 96.8 F L Temperature Source Temporal Pulse Rate 103 H 73 Respiratory Rate 17 17 Respiratory Effort Short of Breath Respiratory Depth Normal Respiratory Pattern Normal Blood Pressure 132/65 H Blood Pressure Mean 87 Pulse Ox 94 98 Oxygen Delivery Method Room Air Room Air Positive well nourished and well developed General Appearance ED: well developed and NAD HEENT Reports moist mucous membranes normocephalic and atraumatic Eyes PERRL and EOMs intact bilaterally Neck full ROM and supple Resp normal respiratory effort and clear to auscultation bilaterally Cardio regular rate, regular rhythm and no murmurs Cardio Narrative: Mildly tachycardic in triage but not tachycardic on exam GI non-tender and non-distended Auscultation: normoactive bowel sounds Palpation: soft Back/Spine no CVA tenderness General Back: other FROM Extremity Extremity Narrative: [place]in[place] on both lower extremities. No bilateral calf tenderness, no edema on the right. Mild edema on the left, no signs of infection/cellulitis. Operative dressing over the surgical wounds and anterior left knee without any apparent discharge on them or bleeding, no surrounding erythema. All compartments soft, able to range her knee some, good range of motion of the other joints. General Extremety ED: Yes edema; Negative for pulses abnormal or tenderness General Extremity: edema left lower extremity mild; Negative for pulses abnormal Neuro oriented x3, CN's II-XII intact bilaterally and no sensory deficits noted Sensorium / Orientation: awake and alert Motor Exam: strength 5/5 throughout Skin no rashes or lesions noted and no wounds MDM MDM MDM Narrative Medical decision making narrative: Patient's cardiac work-up is negative including BNP of 11, troponin of 4 after several days of symptoms, and her EKG is normal as is her rhythm on the monitor. Her labs are normal. On my interpretation 2 view chest x-ray is normal. I did an ultrasound of her left lower extremity, she has no evidence of a DVT, and she is already on Xarelto. Given all this I think I can reassure her, there is no evidence or suspicion here for pulmonary embolus given all of that, no evidence of cardiopulmonary pathology acutely, now comfortable with her being discharged home. We walked her here, she was not symptomatic and did not drop her oxygenation. Lab Data Attestation: I reviewed the patient's lab results. Labs: Laboratory Results - last 24 hr 04/16/22 04/16/22 04/16/22 10:30 10:30 10:30 WBC 5.8 RBC 3.75 L Hgb 11.0 L Hct 33.1 L MCV 88.3 MCH 29.3 MCHC 33.2 RDW Std Deviation 41.0 RDW Coeff of Kasandra 12.7 Plt Count 256 MPV 10.2 Immature Gran % (Auto) 0.200 Neut % (Auto) 68.1 Lymph % (Auto) 17.6 L [place] % (Auto) 11.2 H Eos % (Auto) 2.6 Baso % (Auto) 0.3 Absolute Neuts (auto) 3.9 Absolute Lymphs (auto) 1.02 Nucleated RBC % 0 Sodium 139 Potassium 3.4 L Chloride 107 Carbon Dioxide 25.0 Anion Gap 7 BUN 10 Creatinine 0.65 Estim Creat Clear Calc 32.23 Est GFR (MDRD) Af Amer 113 Est GFR (MDRD) Non-Af 93 BUN/Creatinine Ratio 15.4 Glucose 135 H Calcium 9.1 Troponin I High Sens 4 B-Natriuretic Peptide 11.6 Radiography Diagnostic Testing: Clinical Impression(s) from Imaging Studies Chest X-Ray 04/16/22 10:45 IMPRESSION: No acute abnormality is present. Electronically Signed: Puneet Vale MD at 11:11 EDT , Rhythm Strip Rhythm Strip: Sinus Rhythm Rate: 75 Ectopy: None EKG Initial EKG: Attestation: I personally reviewed and interpreted this EKG as follows: Interpretation: Sinus Rhythm and No Acute Injury Pattern Comments: Normal EKG no ectopy Discharge Plan Triage Chief Complaint: Shortness of Breath ED Provider: Marito Watson Dx/Rx/DC Orders Clinical Impression: Dyspnea, Status post total left knee replacement, Orthopnea Instructions: ED Dyspnea Prescriptions: No Action famotidine 40 MG tablet 40 mg PO DAILY RF: 0 coenzyme Q10 10 MG capsule 10 mg PO DAILY RF: 0 fexofenadine [Geraldine Allergy] 180 MG tablet 180 mg PO DAILY RF: 0 simvastatin 20 MG tablet 20 mg PO QHS RF: 0 losartan 25 MG tablet 25 mg PO DAILY RF: 0 acidophilus-pectin, citrus 1 EACH capsule 1 ea PO DAILY RF: 0 spironolactone 25 mg Tablet 25 mg PO DAILY RF: 0 loratadine [Claritin] 10 mg Tablet 10 mg PO DAILY PRN (Reason: Allergic Symptoms) RF: 0 acetaminophen 500 mg Tablet 1,000 mg PO Q8 Qty: 100 RF: 0 oxycodone 5 mg Tablet 5 - 10 mg PO Q4H PRN PRN (Reason: Pain Score 4-10) 5 Days Qty: 60 RF: 0 sennosides-docusate sodium [Stool Softener-Stimulant Laxat] 8.6-50 mg Tablet 2 tab PO BID Qty: 0 RF: 0 Xarelto 10 mg Tablet 10 mg PO DAILY@0600 Qty: 13 RF: 0 Primary Care Provider: Taj Allan Referrals: Taj Allan MD [Primary Care Provider] - 1-2 Days if not improving Disposition Disposition: Home, Self Care
[2022-04-16 10:21] VITALS: PULSE 73; RESP 17; O2SAT 98
[2022-04-16 10:36] LABS: Absolute Lymphocyte Count 1.02 X10^3/uL (0.83-4.51); Absolute Neutrophil Count 3.9 X10^3/uL (2.0-7.7); Basophil# 0.02 X10^3/uL; Basophil% 0.3 % (0-1); Eosinophil# 0.15 X10^3/uL; Eosinophils% 2.6 % (0-5); Hematocrit 33.1 % (37-47); Lymphocyte # 1.02 X10^3/ul (0.83-4.51); Lymphocyte % 17.6 % (19-41); Mean Corp Hgb Conc 33.2 g/dL (32-36); Mean Corpuscular Hgb 29.3 pg (27.0-32.0); Mean Corpuscular Volume 88.3 fL (81-99); Mean Platelet Vol. 10.2 fl (6.2-12.0); Monocyte# 0.65 X10^3/uL; Monocyte% 11.2 % (0-10); NRBC Flagged by Analyzer 0 % (0-5); Neutrophil # 3.94 X10^3/uL (2.7-7.7); Neutrophil % 68.1 % (47-70); Platelet Count 256 K/mm3 (150-450); RBC Distribution Width CV 12.7 % (11.6-14.6); Red Blood Count 3.75 M/mm3 (4.2-5.4); White Blood Count 5.8 K/mm3 (4.4-11.0)
--- NOTE | 2022-04-16 10:45 | RAD_ITS ---
STUDY: X-RAY CHEST REASON FOR EXAM: Female, 82 years old. Dyspnea/orthopnea TECHNIQUE: PA and lateral views of the chest. COMPARISON: None. FINDINGS: EKG electrodes are seen. The lungs are clear and expanded. There is no demonstrated pleural abnormality. Normal size heart. Normal mediastinum and mary kate. Normal visualized pulmonary arteries. Normal visualized aortic arch and descending thoracic aorta. There is a levoscoliosis of the thoracic spine. Normal visualized ribs, clavicles, and shoulders. There is no demonstrated abnormality of the visualized soft tissue structures of the upper abdomen. RAD/Chest PA and Lateral IMPRESSION: No acute abnormality is present. Electronically Signed: Puneet Vale MD at 11:11 EDT ,
[2022-04-16 11:01] LABS: Anion Gap 7 (5-15); BNP,B-Type NATRIURETIC PEPTIDE 11.6 pg/mL (0-100); BUN 10 mg/dL (7-18); BUN/Creat Ratio 15.4 RATIO (10-20); Calcium,Total 9.1 mg/dL (8.5-10.1); Chloride 107 mmol/L (98-107); Creatinine, Serum 0.65 mg/dL (0.55-1.02); EST Glomerular Filtration Rate 93 mL/min (>60); Est Glom Filt Rate - Afr Amer 113 mL/min (>60); Estimated Creatinine Clearance 32.23 ml/min; Glucose 135 mg/dL (74-106); Potassium 3.4 mmol/L (3.5-5.1); Sodium Level 139 mmol/L (136-145); Troponin-I HS 4 pg/mL (3.0-54.0)
[2022-04-16 11:40] VITALS: O2SAT 95
== END 2022-04-16 11:50 | disposition home or self-care (01) ==
PROVIDERS: Emergency Provider Emergency Medicine; PCP Family Medicine; Visit Provider Emergency Medicine
DX: R06.00 Dyspnea, unspecified (principal); R06.01 Orthopnea; M79.89 Other specified soft tissue disorders; E78.00 Pure hypercholesterolemia, unspecified; Z96.652 Presence of left artificial knee joint; I10 Essential (primary) hypertension; K21.9 Gastro-esophageal reflux disease without esophagitis; Z79.01 Long term (current) use of anticoagulants; Z79.899 Other long term (current) drug therapy; Z87.891 Personal history of nicotine dependence
CPT/HCPCS: 71046; 80048; 83880; 84484; 85025; 93005; 93971; 99284; A4216

== ENCOUNTER 2024-08-19 12:11 | Emergency (ER) | payer MEDICARE, SELFPAY ==
[2024-08-19 12:12] VITALS: BP 101/84; PULSE 81; RESP 18; TEMP 36.1; O2SAT 96; BMI 34.3
--- NOTE | 2024-08-19 12:38 | ED.VIS.GI ---
HPI HPI - GI History of Present Illness Chief Complaint: GI Bleed Informant: patient and spouse/S.O. Narrative Narrative: 84-year-old female presents with intermittent rectal bleeding and she thinks she has a hemorrhoid. She states this has been an issue for about a year, but yesterday she bled more than usual and a little bit of blood after having had a bowel movement. She states every time she has bleeding it has always been triggered by having a bowel movements. She states they are usually hard. She states she does not have any anal or rectal discomfort consistent with the presence of an external hemorrhoid. She takes no antiplatelet or anticoagulant; I saw rivaroxaban on her list and asked her about it, she states she has never been on a blood thinner in her life that she can recall for any reason. She states she is feeling a little more weak than usual today but no lightheadedness or near syncope/syncope. No chest discomfort or dyspnea. She has some mild lower abdominal crampy discomfort no nausea or vomiting. No melena. Patient states she tried on her own to get in with a jigsaw operator to have her hemorrhoids evaluated but they are scheduling 5 or 6 months out, eye doctor in [place]. She called her PCP and they told her to come to the ER. [facility] Medical History Arthritis Wears glasses Wears dentures High cholesterol Gastric reflux Bradycardia History of echocardiogram History of stress test Cardiology follow-up encounter Hypertension Home Medications ?Medication ?Instructions ?Recorded ?Last Taken ?Type acidophilus 7.5 mg (30 million 1 ea PO DAILY 12/22/19 04/06/22 History cell)-pectin, citrus 100 mg capsule coenzyme Q10 10 mg capsule 10 mg PO DAILY 12/22/19 04/06/22 History famotidine 40 mg tablet 40 mg PO DAILY 12/22/19 04/11/22 History fexofenadine 180 mg tablet 180 mg PO DAILY 12/22/19 Unknown History (Geraldine Allergy) simvastatin 20 mg tablet 20 mg PO QHS 12/22/19 04/10/22 History spironolactone 25 mg tablet 12.5 mg PO DAILY 03/28/22 04/10/22 History loratadine 10 mg tablet (Claritin) 10 mg PO DAILY PRN Allergic 04/11/22 04/11/22 History Symptoms acetaminophen 500 mg tablet 1,000 mg (2 x 500 mg) PO Q8 #100 04/12/22 Unknown Rx tabs sennosides 8.6 mg-docusate sodium 2 tab PO BID #0 tabs 04/12/22 Unknown Rx 50 mg tablet (Stool Softener-Stimulant Laxative) escitalopram oxalate 5 mg tablet 5 mg PO DAILY 08/19/24 Unknown History hydrocortisone 1 %-pramoxine 1 % 1 applic TX QHS #10 grams 08/19/24 Unknown Rx rectal foam (Proctofoam HC) losartan 50 mg tablet 25 mg PO DAILY 08/19/24 Unknown History Allergy/AdvReac Type Severity Reaction Status Date / Time aspirin Allergy Anaphylaxis Verified 08/19/24 12:13 Surgical History Hx of foot surgery Social History Smoking Status: Former smoker ROS ROS ED Constitutional Constitutional ED: Reports weakness; Denies chills or fever(s) Eyes Eyes: Denies change in vision or diplopia ENT ENT ED: Denies rhinorrhea or sore throat Cardiovascular Cardiovascular: Denies chest pain, lightheadedness, palpitations or syncope Respiratory/Chest Respiratory/Chest: Denies cough or dyspnea Gastrointestinal Gastrointestinal: Reports abdominal pain, constipation and hematochezia; Denies diarrhea, melena, nausea or vomiting Genitourinary Genitourinary ED: Denies dysuria or hematuria Musculoskeletal Musculoskeletal: Denies back pain or neck pain Integumentary Denies abscess or rash Neurologic Neurologic: Denies headache(s), paresthesias or weakness Psychiatric Psychiatric: Denies anxiety or suicidal thoughts EXAM Physical Exam Const Vital Signs: 08/19/24 12:12 08/19/24 13:11 Temperature 97 F L Temperature Source Temporal Pulse Rate 81 Pulse Rate [Lying] 53 L Pulse Rate [Sitting (for 1 minute prior to obtaining)] 56 L Pulse Rate [Standing (for 1 minute prior to obtaining)] 64 Respiratory Rate 18 Blood Pressure 101/84 H Blood Pressure [Lying] 147/56 H Blood Pressure [Sitting (for 1 minute prior to obtaining)] 147/60 H Blood Pressure [Standing (for 1 minute prior to obtaining)] 135/59 H Blood Pressure Mean 89 Blood Pressure Mean [Lying] 86 Blood Pressure Mean [Sitting (for 1 minute prior to obtaining)] 89 Blood Pressure Mean [Standing (for 1 minute prior to obtaining)] 84 Pulse Ox 96 Oxygen Delivery Method Room Air Positive well nourished and well developed General Appearance ED: well developed and NAD HEENT Reports moist mucous membranes normocephalic and atraumatic Eyes PERRL and EOMs intact bilaterally Neck full ROM and supple Resp normal respiratory effort and clear to auscultation bilaterally Cardio regular rate, regular rhythm and no murmurs GI non-tender and non-distended Auscultation: normoactive bowel sounds Palpation: soft Back/Spine no CVA tenderness General Back: other FROM Extremity normal to inspection General Extremety ED: Negative for edema, pulses abnormal or tenderness General Extremity: Negative for edema or pulses abnormal Neuro oriented x3, CN's II-XII intact bilaterally and no sensory deficits noted Sensorium / Orientation: awake and alert Motor Exam: strength 5/5 throughout Skin no rashes or lesions noted and no wounds MDM MDM MDM Narrative Medical decision making narrative: Performed rectal exam with nurse carpenter repairer, multiple nontender nonthrombosed external hemorrhoids all the way around the anus. No active bleeding, no obvious source, digital rectal is negative for any focal tenderness or bright red blood at all. Patient is well-appearing with normal vital signs. Labs reviewed her hemoglobin is stable at 13.2. She states she has had a colonoscopy before but it was not done here, and she does not know if she was diagnosed with diverticulosis or not. Although that is in the differential, she has such significant external hemorrhoidal disease, that the history which is consistent with hemorrhoidal bleeding, probably does represent hemorrhoidal bleeding. At this point I would recommend following up as an outpatient, she states she already has contacted Dr. Allen to try to get in with her I said that would be a reasonable surgeon to follow-up with for this, and in the meantime I would do daily MiraLAX and I think reasonable to prescribe her Proctofoam HC to use nightly. She is comfortable with that plan. Lab Data Attestation: I reviewed the patient's lab results. Labs: Laboratory Results - last 24 hr 08/19/24 12:45 WBC 6.3 RBC 4.53 Hgb 13.2 Hct 39.9 MCV 88.1 MCH 29.1 MCHC 33.1 RDW Std Deviation 40.1 RDW Coeff of [place] 12.5 Plt Count 242 MPV 10.8 Immature Gran % (Auto) 0.200 Neut % (Auto) 62.7 Lymph % (Auto) 25.6 [place] % (Auto) 9.2 Eos % (Auto) 1.3 Baso % (Auto) 1.0 Absolute Neuts (auto) 3.9 Absolute Lymphs (auto) 1.61 Nucleated RBC % 0 Sodium 137 Potassium 4.8 Chloride 104 Carbon Dioxide 26.0 Anion Gap 7 BUN 11 Creatinine 0.84 Estim Creat Clear Calc 48.28 Est GFR (MDRD) Af Amer 83 Est GFR (MDRD) Non-Af 69 BUN/Creatinine Ratio 13.0 Glucose 98 Calcium 9.6 Discharge Plan Triage Chief Complaint: GI Bleed ED Provider: Marito Watson Dx/Rx/DC Orders Clinical Impression: Acute lower gastrointestinal bleeding, External hemorrhoids Instructions: ED Hemorrhoids Prescriptions: New Proctofoam HC 1-1 % foam 1 applic TX QHS Qty: 10 0RF Discontinued Xarelto 10 mg Tablet 10 mg PO DAILY@0600 Qty: 13 0RF Rx Instructions: Take for 2 weeks postoperatively for DVT prophylaxis No Action famotidine 40 MG tablet 40 mg PO DAILY coenzyme Q10 10 MG capsule 10 mg PO DAILY fexofenadine [Geraldine Allergy] 180 MG tablet 180 mg PO DAILY simvastatin 20 MG tablet 20 mg PO QHS acidophilus-pectin, citrus 1 EACH capsule 1 ea PO DAILY spironolactone 25 mg Tablet 12.5 mg PO DAILY loratadine [Claritin] 10 mg Tablet 10 mg PO DAILY PRN (Reason: Allergic Symptoms) acetaminophen 500 mg Tablet 1,000 mg PO Q8 Qty: 100 0RF Rx Instructions: Do not take more than 3000 mg Tylenol in a 24-hour period. sennosides-docusate sodium [Stool Softener-Stimulant Laxat] 8.6-50 mg Tablet 2 tab PO BID Qty: 0 0RF Rx Instructions: Take until first bowel movement, then as needed losartan 50 mg tablet 25 mg PO DAILY escitalopram oxalate 5 mg tablet 5 mg PO DAILY Primary Care Provider: Taj Allan Referrals: Taj Allan MD [Primary Care Provider] - Fide Allen MD [Med Staff - Active Staff] - (call for appt) Print Language: Frisian Disposition Disposition: Home, Self Care
[2024-08-19 12:56] LABS: Absolute Lymphocyte Count 1.61 X10^3/uL (0.83-4.51); Absolute Neutrophil Count 3.9 X10^3/uL (2.0-7.7); Basophil# 0.06 X10^3/uL; Eosinophil# 0.08 X10^3/uL; Eosinophils% 1.3 % (0-5); Hematocrit 39.9 % (37-47); Hemoglobin 13.2 g/dL (12.0-15.0); Lymphocyte # 1.61 X10^3/ul (0.83-4.51); Lymphocyte % 25.6 % (19-41); Mean Corp Hgb Conc 33.1 g/dL (32-36); Mean Corpuscular Hgb 29.1 pg (27.0-32.0); Mean Corpuscular Volume 88.1 fL (81-99); Mean Platelet Vol. 10.8 fl (6.2-12.0); Monocyte# 0.58 X10^3/uL; Monocyte% 9.2 % (0-10); NRBC Flagged by Analyzer 0 % (0-5); Neutrophil # 3.94 X10^3/uL (2.7-7.7); Neutrophil % 62.7 % (47-70); Platelet Count 242 K/mm3 (150-450); RBC Distribution Width CV 12.5 % (11.6-14.6); RBC Distribution Width SD 40.1 fl (35.1-43.9); Red Blood Count 4.53 M/mm3 (4.2-5.4); White Blood Count 6.3 K/mm3 (4.4-11.0)
[2024-08-19 13:11] VITALS: BP 135/59; BP 147/56; BP 147/60; PULSE 53; PULSE 56; PULSE 64
[2024-08-19 13:33] LABS: Anion Gap 7 (5-15); BUN 11 mg/dL (7-18); Calcium,Total 9.6 mg/dL (8.5-10.1); Chloride 104 mmol/L (98-107); Creatinine, Serum 0.84 mg/dL (0.55-1.02); EST Glomerular Filtration Rate 69 mL/min (>60); Est Glom Filt Rate - Afr Amer 83 mL/min (>60); Estimated Creatinine Clearance 48.28 ml/min; Glucose 98 mg/dL (74-106); Potassium 4.8 mmol/L (3.5-5.1); Sodium Level 137 mmol/L (136-145)
== END 2024-08-19 13:46 | disposition home or self-care (01) ==
LOC: ED 13:08
PROVIDERS: Emergency Provider Emergency Medicine; PCP Family Medicine; Referring Provider Emergency Medicine; Visit Provider Emergency Medicine
DX: K64.4 Residual hemorrhoidal skin tags (principal); I10 Essential (primary) hypertension; E78.00 Pure hypercholesterolemia, unspecified; K21.9 Gastro-esophageal reflux disease without esophagitis; Z79.899 Other long term (current) drug therapy; Z87.891 Personal history of nicotine dependence
CPT/HCPCS: 80048; 85025; 99284; A4216